=== PATIENT | female | born 1960 | race Caucasian/White ===

== ENCOUNTER → 2018-10-21 | Outpatient (CLI) | payer MEDICARE ==
[~2018-10-21] MED LIST: ALBUTEROL2.5 MG/31 IH; AMITRIPTYLINE H25 M4 PO; AMITRIPTYLINE H50 M2 PO; ASPIR 8181 MG PO; AVELOX 400 MG400 MG PO; AZITHROMYCIN 2250 MG PO; CALCIUM; CELLCEPT500 MG PO; CHANTIX1 MG PO; COLACE100 MG PO; DILAUDID 4 MG TA4 M1 PO; DOXYCYCLINE 10100 M1 PO; FLAGYL500 MG PO; LORAZEPAM 0.50.5 MG PO; MIRALAX255 GM PO; MORPHINE PO; MS CONTIN 30 MG30 M1 PO; MS CONTIN15 MG PO; MUCINEX TA600 MG/TA2 PO; NORCO 5-325 TA1 EACH PO; PENICILLIN VK250 MG PO; PHENERGAN 25 MG25 M1 PO; PREDNISONE 20 M20 M1 PO; PREDNISONE PO; PROMETHAZINE12.5 M1 PO; TESSALON PERLE100 MG PO; VENTOLIN HFA 1818 GM INH; VITAMIN B-12100 MCG PO; VITAMIN D 5050000 I1 PO; VITAMIN D350000 UNIT PO; XOPENEX1.25 MG/3 IH; ZOFRAN ODT4 MG PO; ZOFRAN8 MG PO
== END ==
LOC: M.MRI 14:52
DX: C34.11 Malignant neoplasm of upper lobe, right bronchus or lung (principal); R41.82 Altered mental status, unspecified